=== PATIENT | male | born 1970 | race Caucasian/White ===

== ENCOUNTER → 2017-07-17 | Outpatient (CLI) | payer BC ==
[2017-06-20 11:00] VITALS: BP 140/79
--- NOTE | 2017-07-14 18:18 | HP ---
ADMIT DATE: Caden Burks dictating for Dr. Jesus Byrd. Preoperative history and physical for surgery scheduled on 07/21/2017 HISTORY OF PRESENT ILLNESS: The patient is a pleasant 47-year-old who was recently hospitalized for back and left leg pain. Following discharge, he says he has continued to have difficulties. He has low back pain in the left side intermittently. When he increased his activities, he notices pain which radiates into his left lateral leg. He says that his thigh is not particularly involved. His problems began in 1993 following a sneezing episode. He has had multiple episodes of back and leg pain, although this current episode is most severe and is not resolving. He rates his pain as an 8/10. He uses a TENS unit as well as tramadol. He takes Motrin. Epidural steroid injections in the past that he has received have sometimes helped and sometimes not. He has also been to chiropractic treatment and physical therapy in the past. PAST MEDICAL HISTORY: Hypertension. PAST SURGICAL HISTORY: Tonsillectomy 1984. FAMILY HISTORY: Cancer, diabetes, hypertension, spine problems. 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 . He uses electronic cigarettes. Drinks alcohol 6-8 times per week. ALLERGIES: No known drug allergies. CURRENT MEDICATIONS: Tramadol, Motrin, losartan, meloxicam, triamterene, multivitamin, omega-3, flaxseed oil, ginseng. REVIEW OF SYSTEMS: A 12-point review of systems was obtained and is noncontributory except for that mentioned above. NEUROSURGERY EXAMINATION: GENERAL APPEARANCE: Alert, pleasant, in no acute distress. HEENT: Head normocephalic and atraumatic. SKIN: Warm and dry. MUSCULOSKELETAL: Lumbar paraspinal muscle bulk is normal, restricted range of motion of lumbar spine, [id number]-[id number] tenderness of the lumbar spine with palpation, normal range of motion of the lower extremities bilaterally. EXTREMITIES: No clubbing, cyanosis, or edema. NEUROLOGIC: Alert and oriented x 3, strength 5/5 in bilateral lower extremities, sensation intact to light touch in bilateral lower extremities except for decreased sensation in the left lateral ____, reflexes were present and symmetric in the bilateral lower extremities except trace left ankle jerk, positive SLR on the left, negative SLR on the right, antalgic gait. IMAGING: Reviewed. I reviewed a lumbar MRI scan. There is moderately large focal disk herniation on the left side at L5-S1, which severely narrows the left lateral recess and compresses the left S1 nerve root. This is associated with moderate left greater than right spinal canal stenosis. ASSESSMENT: 1. Intervertebral disk disorders with radiculopathy, lumbosacral region. 2. Spinal stenosis, lumbosacral region. PLAN: The patient has had a problem for years with intermittent episodes of back and left leg pain, but most recently it was severe enough to require hospitalization. On imaging studies, there was a focal disk herniation on the left at L5-S1 with nerve root compression. My recommendation is that he consider undergoing microsurgery at this level. I spoke with him about the surgery and the risks as well as the expected postoperative course. He understands. He would like to go ahead. We will make the arrangements. JESUS BYRD MD DR: MYCHAL/kimberly JOB#: [id number] / [id number]
[~2017-07-17] MED LIST: DOCU-109 PO; IBUP-1060 PO; LOSA25TA PO; METH-38 PO; METH4TAB2 PO; OXYC-323 PO; OXYC1TAB7 PO; OXYC1TAB9 PO; PANT20TA2 PO; TRAM50TA PO; TRIA1CAP3 PO
--- NOTE | 2017-07-17 15:42 | EKG ---
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
[2017-07-17 15:58] LABS: BASO # 0.1 x10^3/uL (0.0-0.2); BASO % 1 % (0-3); EOS % 4 % (0-3); HEMATOCRIT 42.9 % (39.0-53.0); HEMOGLOBIN 14.8 g/dL (13.0-17.5); LYMPH # 2.7 x10^3/uL (1.0-4.8); LYMPH % 28 % (24-48); MEAN CORPUSCULAR HEMOGLOBIN 32 pg (25-35); MEAN CORPUSCULAR HGB CONC 35 g/dL (31-37); MEAN CORPUSCULAR VOLUME 93 fL (79-100); MONO % 6 % (0-9); NEUT % 61 % (31-73); PLATELET COUNT 228 x10^3/uL (140-400); RED BLOOD COUNT 4.64 x10^6/uL (4.30-5.70); RED CELL DISTRIBUTION WIDTH 13.7 % (11.5-14.5); WHITE BLOOD COUNT 9.6 x10^3/uL (4.0-11.0)
[2017-07-17 16:19] LABS: ALBUMIN/GLOBULIN RATIO 1.1 (1.0-1.7); CALCIUM 8.7 mg/dL (8.5-10.1); CREATININE 0.9 mg/dL (0.7-1.3); GFR 89.7; POTASSIUM 3.6 mmol/L (3.5-5.1); TOTAL BILIRUBIN 0.6 mg/dL (0.2-1.0); TOTAL PROTEIN 7.7 g/dL (6.4-8.2)
== END | disposition home or self-care (01) ==
LOC: SURGPAT 15:22
PROVIDERS: ATTEND Neurological Surgery
DX: Z01.818 Encounter for other preprocedural examination (principal); I10 Essential (primary) hypertension; M48.07 Spinal stenosis, lumbosacral region; M54.17 Radiculopathy, lumbosacral region
CPT/HCPCS: 36415; 80053; 85025; 87641; 93005

== ENCOUNTER → 2017-07-21 | Day surgery (SDC) | payer BC ==
[~2017-07-21] VITALS: Ht 175.3 cm; Wt 83.9 kg
[~2017-07-21] MED LIST changes: +BACITRACIN 50,000 UNIT in IV NORMAL SALINE 1000ML BAG 1,000 ML IRR ONE; +BUPIVACAINE MPF 0.5% 30 ML VIAL. ONE; +BUPIVACAINE-EPI 0.25%-1:200000 MPF 30 ML VIAL. ONE; +DESFLURANE > 120 MINUTES IH ONE; +DEXAMETHASONE SOD PHOS 20 MG/5 ML VIAL. ONE; +GELATIN SPONGE SIZE 100. ONE; +GLYCOPYRROLATE 1 MG/5 ML VIAL. ONE; +HYDROmorphone 2 MG/ML VIAL IV PRN; +IV RINGERS,LACTATED 1000ML 1,000 ML IV SCH; +KETOROLAC 60 MG/2 ML INJ FOR OR. ONE; +LIDOCAINE 1% PF 2 ML VIAL. ID PRN; +LIDOCAINE 2% PF Vial for OR 5 ML VIAL. ONE; +MORPHINE SULFATE 2 MG/ML DISP.SYRIN. IV PRN; +MORPHINE SULFATE 4 MG/ML DISP.SYRIN. IV PRN; +NEOSTIGMINE METHYLSULFATE 5 MG/5 ML SYRINGE. ONE; +ONDANSETRON PF 4 MG/2 ML VIAL. IV PRN; +ONDANSETRON PF 4 MG/2 ML VIAL. ONE; +PHENYLEPHRINE in 0.9% NACL PF 1 MG/10 ML DISP.SYRIN. IV ONE; +PROCHLORPERAZINE 10 MG/2 ML VIAL. IV PRN; +PROPOFOL 20 ML IV ONE; +PROPOFOL 50 ML IV ONE; +REMIFENTANIL 2 MG VIAL. IV ONE; +SUCCINYLCHOLINE 200 MG/10 ML VIAL. ONE; +THROMBIN TOPICAL 20,000 UNIT SPRAY.SYRN KIT TP ONE; +ePHEDrine PF IN SALINE 50 MG/5 ML DISP.SYRIN IV ONE; +fentaNYL PF VIAL 100 MCG/2 ML VIAL IV PRN; +fentaNYL PF VIAL 100 MCG/2 ML VIAL ONE; +oxyCODONE/APAP 5/325 1 TAB TABLET PO PRN
--- NOTE | 2017-07-21 11:12 | DISCH ---
DISCHARGE INSTRUCTIONS Condition on Discharge Condition on Discharge: Stable Activity After Discharge Activity Instructions for Disc: Resume previous activity, Activity as tolerated Other activity instructions: no driving for a week Bathing Instructions: Shower-keep dressing dry Lifting Instructions after Dis: No heavy lifting, No pulling or pushing, Do not lift >10 pounds Diet after Discharge Additional Diet Restrictions: resume home diet Wound Incision Care Wound/Incision Care: Ice to area for comfort Other wound/incision instructi: may remove dressing in 48 hrs if dry then may shower- no soaking Contacting the after DC Call your doctor for: Concerns you may have Follow-Up Follow up with: Dr. Byrd's nurse in 2 weeks [phone] JIM BYRD MD Jul 21, 2017 11:12
[2017-07-21] MEDS: fentaNYL PF VIAL 100 MCG/2 ML VIAL IV PRN ×2 (11:22→11:29)
[2017-07-21 12:15] VITALS: BP 128/78
--- NOTE | 2017-07-21 12:19 | OP ---
DATE OF SURGERY: 07/21/2017 PREOPERATIVE DIAGNOSES: Herniated lumbar disc, L5-S1 with left lumbar radiculopathy. POSTOPERATIVE DIAGNOSES: Herniated lumbar disc, L5-S1 with left lumbar radiculopathy. OPERATION PERFORMED: Hemilaminotomy and microdiscectomy, L5-S1, left. The operation was done with EMG monitoring, fluoroscopy, microscopic dissection. SURGEON: Jesus Byrd M.D. WASTE ELIMINATION: NEETU Triplett, assisted with the surgery; she assisted with the microdiskectomy as well as the closure. OPERATIVE INDICATIONS: The patient is a pleasant 47-year-old man who developed intractable back and leg pain, which did require hospitalization. He was treated conservatively with steroid injections and did not improve significantly and continue to have severe radicular problems with his left leg. Surgery had been recommended. He elected to go forward. He understood the surgery and the risks. He understood the technique. DESCRIPTION OF PROCEDURE: Following general endotracheal anesthesia, the patient was positioned prone on the Girish table with lumbar region prepped and draped in standard fashion. TREVA hose and AV impulse boots were applied for DVT prophylaxis. A microscope was draped. Fluoroscopy was draped and brought into field. Monitoring was established. Ancef 2 grams was given less than 1 hour prior to initiation of the surgery. Using fluoroscopic guidance, an incision was made over the L5-S1 interspace. I dissected down through the skin and subcutaneous tissue and reflected the paraspinal muscles and placed a [place] micro disc retractor, brought in the microscope. The remainder of surgery was done with a microscope using microscopic technique. I brought in the high speed air drill and burred down a generous hemilaminotomy and then trimmed away thickened ligamentum flavum and I did perform a partial foraminotomy. The ligamentum flavum was very thickened over the level of the disc and slightly inferior to this and compressing the nerve root markedly down on to a large subligamentous disc herniation. After removing ligament and performing a partial foraminotomy, I gently retracted the root medially and used 11 blade to enter the very thinned out posterior ligament. I then removed several large disc fragments teasing from medial to lateral and the root became better decompressed. I was unable to retract slightly farther and then, I incised the annulus and performed a discectomy with pituitary rongeurs and as I worked in, the region became well decompressed. There was bulging disc above the level of the disc space, which was removed; however, more medially, there was a calcified disc herniation, which I did not feel was contributing to nerve root compression. I did not drill down and remove and that. There was some danger with that type of maneuver and I was unwilling to retract the root to that extent. I did explore carefully. The root was very free, was easily able to be retracted medially. The large disc herniation had been removed and there was the only residual calcified disc bulging medially which was left. At this point, then I irrigated copiously antibiotic solution. I closed the wound then with absorbable sutures after obtaining perfect hemostasis. The skin was closed with 4-0 subcuticular stitch. I felt the surgery went very well and the patient was awakened uneventfully. I was quite pleased with the surgery. JESUS BYRD MD DR: MYCHAL/kimberly JOB#: [id number] / [id number] YOHAN
--- NOTE | 2017-07-25 11:37 | HP ---
ADMIT DATE: 07/21/2017 Caden Burks dictating for Dr. Jesus Byrd. Preoperative history and physical for surgery scheduled on 07/21/2017 HISTORY OF PRESENT ILLNESS: The patient is a pleasant 47-year-old who was recently hospitalized for back and left leg pain. Following discharge, he says he has continued to have difficulties. He has low back pain in the left side intermittently. When he increased his activities, he notices pain which radiates into his left lateral leg. He says that his thigh is not particularly involved. His problems began in 1993 following a sneezing episode. He has had multiple episodes of back and leg pain, although this current episode is most severe and is not resolving. He rates his pain as an 8/10. He uses a TENS unit as well as tramadol. He takes Motrin. Epidural steroid injections in the past that he has received have sometimes helped and sometimes not. He has also been to chiropractic treatment and physical therapy in the past. PAST MEDICAL HISTORY: Hypertension. PAST SURGICAL HISTORY: Tonsillectomy 1984. FAMILY HISTORY: Cancer, diabetes, hypertension, spine problems. 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 . He uses electronic cigarettes. Drinks alcohol 6-8 times per week. ALLERGIES: No known drug allergies. CURRENT MEDICATIONS: Tramadol, Motrin, losartan, meloxicam, triamterene, multivitamin, omega-3, flaxseed oil, ginseng. REVIEW OF SYSTEMS: A 12-point review of systems was obtained and is noncontributory except for that mentioned above. NEUROSURGERY EXAMINATION: GENERAL APPEARANCE: Alert, pleasant, in no acute distress. HEENT: Head normocephalic and atraumatic. SKIN: Warm and dry. MUSCULOSKELETAL: Lumbar paraspinal muscle bulk is normal, restricted range of motion of lumbar spine, rcgr-um-[id number] tenderness of the lumbar spine with palpation, normal range of motion of the lower extremities bilaterally. EXTREMITIES: No clubbing, cyanosis, or edema. NEUROLOGIC: Alert and oriented x 3, strength 5/5 in bilateral lower extremities, sensation intact to light touch in bilateral lower extremities except for decreased sensation in the left lateral ____, reflexes were present and symmetric in the bilateral lower extremities except trace left ankle jerk, positive SLR on the left, negative SLR on the right, antalgic gait. IMAGING: Reviewed. I reviewed a lumbar MRI scan. There is moderately large focal disk herniation on the left side at L5-S1, which severely narrows the left lateral recess and compresses the left S1 nerve root. This is associated with moderate left greater than right spinal canal stenosis. ASSESSMENT: 1. Intervertebral disk disorders with radiculopathy, lumbosacral region. 2. Spinal stenosis, lumbosacral region. PLAN: The patient has had a problem for years with intermittent episodes of back and left leg pain, but most recently it was severe enough to require hospitalization. On imaging studies, there was a focal disk herniation on the left at L5-S1 with nerve root compression. My recommendation is that he consider undergoing microsurgery at this level. I spoke with him about the surgery and the risks as well as the expected postoperative course. He understands. He would like to go ahead. We will make the arrangements. JESUS BYRD MD DR: MYCHAL/kimberly JOB#: [id number] / [id number]
--- NOTE | 2017-07-25 13:20 | PATHOLOGY ---
PATHOLOGY REPORT * * * * * * * * FINAL DIAGNOSIS: Segments of fibrocartilaginous, adipose, and skeletal muscle tissue and bone, lumbar disc and decompression: - Degenerative changes of fibrocartilaginous tissue. (JPM:pit; 07/25/2017) COMMENT: There is no evidence of an acute inflammatory process or malignancy. (JPM:pit; 07/25/2017) REPORT ELECTRONICALLY SIGNED BY: Darrell Mcneal M.D. DATE/TIME: 07/25/2017 13:20 * * * * * * * * GROSS PATHOLOGY: The specimen is received in formalin, labeled "Joselin England and lumbar disc and decompression" and consists of a 2.5 x 1.7 x 1.6 cm aggregate of mesa-crenshaw and hemorrhagic fibrocartilaginous tissue. Exercise Physiology Professor sections are submitted as A1. (ANUSHKA; 07/24/2017) INITIAL CPT CODE(S): A; 70355 Professional services performed [place] [facility] [place] [address] Technical services performed by [facility] at [address] [place] [address]. SPECIMEN(S) RECEIVED: A.Lumbar disc and decompression CLINICAL HISTORY: Lumbar herniated disc PATIENT: JOSELIN ENGLAND /AGE: 5 1970 (Age: 47) PATIENT #: [id number] ALT CASE #: SPECIMEN COLLECTION DATE: 07/21/2017 SPECIMEN RECEIVED DATE: 07/21/2017 [facility] - [address] [place] [address] - PHONE: [phone] * * * END OF REPORT * * *
== END | disposition home or self-care (01) ==
LOC: SURG 06:53
PROVIDERS: ATTEND Neurological Surgery
DX: M51.16 Intervertebral disc disorders with radiculopathy, lumbar region (principal); I10 Essential (primary) hypertension; F17.200 Nicotine dependence, unspecified, uncomplicated; Z86.69 Personal history of other diseases of the nervous system and sense organs; Z87.39 Personal history of other diseases of the musculoskeletal system and connective tissue; Z72.89 Other problems related to lifestyle; Z72.0 Tobacco use; Z88.8 Allergy status to other drugs, medicaments and biological substances
CPT/HCPCS: 63030; 76000; 97161; J0330; J0690; J1100; J1885; J2270; J2370; J2405; J2704; J2710; J3010; J3490; J7030; J7120; J0780; J2001

== ENCOUNTER → 2018-11-29 | Outpatient (CLI) | payer BC ==
[~2018-11-29] MED LIST changes: -BACITRACIN 50,000 UNIT in IV NORMAL SALINE 1000ML BAG 1,000 ML IRR ONE; -BUPIVACAINE MPF 0.5% 30 ML VIAL. ONE; -BUPIVACAINE-EPI 0.25%-1:200000 MPF 30 ML VIAL. ONE; -DESFLURANE > 120 MINUTES IH ONE; -DEXAMETHASONE SOD PHOS 20 MG/5 ML VIAL. ONE; +GABA600T7 PO; -GELATIN SPONGE SIZE 100. ONE; -GLYCOPYRROLATE 1 MG/5 ML VIAL. ONE; +HYDR-3164 PO; -HYDROmorphone 2 MG/ML VIAL IV PRN; +IOHEXOL 180 MG/ML 10 ML VIAL. IT ONE; -IV RINGERS,LACTATED 1000ML 1,000 ML IV SCH; -KETOROLAC 60 MG/2 ML INJ FOR OR. ONE; -LIDOCAINE 1% PF 2 ML VIAL. ID PRN; -LIDOCAINE 2% PF Vial for OR 5 ML VIAL. ONE; +LIDOCAINE WITH 8.4% SOD BICARB 3 ML DISP.SYRIN. INJ ONE; +LOSA1TAB22 PO; -MORPHINE SULFATE 2 MG/ML DISP.SYRIN. IV PRN; -MORPHINE SULFATE 4 MG/ML DISP.SYRIN. IV PRN; +MULT1TAB52 PO; -NEOSTIGMINE METHYLSULFATE 5 MG/5 ML SYRINGE. ONE; -ONDANSETRON PF 4 MG/2 ML VIAL. IV PRN; -ONDANSETRON PF 4 MG/2 ML VIAL. ONE; -OXYC-323 PO; +OXYC-411 PO; +OXYC1TAB15 PO; -OXYC1TAB9 PO; -PHENYLEPHRINE in 0.9% NACL PF 1 MG/10 ML DISP.SYRIN. IV ONE; -PROCHLORPERAZINE 10 MG/2 ML VIAL. IV PRN; -PROPOFOL 20 ML IV ONE; -PROPOFOL 50 ML IV ONE; -REMIFENTANIL 2 MG VIAL. IV ONE; -SUCCINYLCHOLINE 200 MG/10 ML VIAL. ONE; -THROMBIN TOPICAL 20,000 UNIT SPRAY.SYRN KIT TP ONE; -ePHEDrine PF IN SALINE 50 MG/5 ML DISP.SYRIN IV ONE; -fentaNYL PF VIAL 100 MCG/2 ML VIAL IV PRN; -fentaNYL PF VIAL 100 MCG/2 ML VIAL ONE; -oxyCODONE/APAP 5/325 1 TAB TABLET PO PRN
[2018-11-29 10:28] VITALS: BP 154/75
--- NOTE | 2018-11-29 10:45 | NUR ---
Pt discharged home accompanied by his mother. VSS. Pt given CD, and images okayed for discharge per Dr. Regan. Discharge instructions given and reviewed with pt. Pt walked with mother to main entrance.
--- NOTE | 2018-11-29 11:09 | RAD ---
Lumbar myelogram, 11/29/2018: History: Left foot drop, radiculopathy Under local anesthesia, aseptic conditions and fluoroscopic guidance a lumbar puncture was performed at the upper L4 level utilizing a 25-gauge spinal needle. Good clear CSF flow was obtained following which 14 cc of Omnipaque 180 was injected in the thecal sac. The spinal needle was removed and hemostasis obtained. Appropriate digital imaging was then performed. 2.6 minutes of fluoroscopy time was utilized. 13 fluoroscopic spot images were recorded. The patient tolerated the procedure well and was sent to CT in good condition. The following findings were delineated on the myelogram: 1. There is a moderate anterior extradural defect as well as mild bilateral and posterior extradural defects at L4-5. This produces mild to moderate central spinal stenosis. The upright lateral flexion and extension view show no significant instability. 2. There is a moderate anterior extradural defect at L3-4. 3. There is decreased filling of the L5 nerve root sleeves bilaterally. CT lumbar spine-post myelogram, 11/29/2018: Multidetector CT imaging were was performed with multiplanar reconstructions produced. The following findings are delineated: 1. No significant posterior disc bulge or protrusion is seen at L1-2. The central spinal canal and neural foramina are well maintained. 2. At L2-3 there is slight posterior annular bulging. The central spinal canal and neural foramina are well maintained. 3. At L3-4 there is moderate disc space narrowing with a vacuum disc phenomena. There is moderate posterior marginal spurring and broad-based posterior disc bulging. There are mild degenerative changes involving the facet joints. The combination of findings narrows the thecal sac down to an AP diameter of 8 mm at the midline. There is mild inferior foraminal narrowing bilaterally. 4. At L4-5 there is moderate disc space narrowing with a vacuum disc phenomena and moderate marginal spurring. Moderate broad-based posterior disc bulging in conjunction with the posterior spurring is causing moderate narrowing of the thecal sac which measures 7 mm in AP diameter at the midline. There is mild inferior foraminal narrowing bilaterally. 5. At L5-S1 there is also disc space narrowing with a vacuum disc phenomena and moderate to severe marginal spurring. There is also considerable spurring arising from the facet joints with vacuum phenomena at the facet joints. The spurring is causing considerable bilateral foraminal encroachment. The thecal sac centrally is not significantly stenotic. IMPRESSION: 1. Moderate multilevel degenerative disc disease as described above. 2. Moderate associated central spinal stenosis at L4-5 and mild central spinal stenosis at L3-4. 3. Severe bilateral foraminal encroachment at L5-S1 due to spurring. PQRS Compliance Statement: One or more of the following individualized dose reduction techniques were utilized for this examination: 1. Automated exposure control 2. Adjustment of the mA and/or kV according to patient size 3. Use of iterative reconstruction technique
== END | disposition home or self-care (01) ==
LOC: RAD 08:43
PROVIDERS: ATTEND Neurological Surgery
DX: M51.16 Intervertebral disc disorders with radiculopathy, lumbar region (principal); M48.061 Spinal stenosis, lumbar region without neurogenic claudication; M46.07 Spinal enthesopathy, lumbosacral region
CPT/HCPCS: 72132; 72265

== ENCOUNTER → 2018-12-17 | Outpatient (CLI) | payer BC ==
[2018-11-29 10:28] VITALS: BP 154/75
[~2018-12-17] MED LIST changes: -IOHEXOL 180 MG/ML 10 ML VIAL. IT ONE; -LIDOCAINE WITH 8.4% SOD BICARB 3 ML DISP.SYRIN. INJ ONE
[2018-12-17 11:12] LABS: BASO # 0.1 x10^3/uL (0.0-0.2); BASO % 1 % (0-3); EOS # 0.2 x10^3/uL (0.0-0.7); EOS % 3 % (0-3); HEMATOCRIT 44.8 % (39.0-53.0); HEMOGLOBIN 15.2 g/dL (13.0-17.5); LYMPH # 2.1 x10^3/uL (1.0-4.8); LYMPH % 30 % (24-48); MEAN CORPUSCULAR HEMOGLOBIN 32 pg (25-35); MEAN CORPUSCULAR HGB CONC 34 g/dL (31-37); MEAN CORPUSCULAR VOLUME 93 fL (79-100); MONO # 0.5 x10^3/uL (0.0-1.1); MONO % 7 % (0-9); NEUT # 4.3 x10^3uL (1.8-7.7); NEUT % 59 % (31-73); PLATELET COUNT 186 x10^3/uL (140-400); RED BLOOD COUNT 4.82 x10^6/uL (4.30-5.70); RED CELL DISTRIBUTION WIDTH 13.9 % (11.5-14.5); WHITE BLOOD COUNT 7.2 x10^3/uL (4.0-11.0)
[2018-12-17 11:38] LABS: ALBUMIN 3.9 g/dL (3.4-5.0); CALCIUM 9.1 mg/dL (8.5-10.1); CREATININE 0.9 mg/dL (0.7-1.3); GFR 89.3; POTASSIUM 3.5 mmol/L (3.5-5.1); TOTAL BILIRUBIN 0.6 mg/dL (0.2-1.0); TOTAL PROTEIN 7.8 g/dL (6.4-8.2)
--- NOTE | 2018-12-17 11:47 | EKG ---
[facility] [address] [place] [address] Test Date: 2018-12-17 Test Time: 10:40:02 Pat Name: JOSELIN ENGLAND Department: Room: Gender: M Beer Maker: : 1970 Requested By: JIM BYRD Order Number: [id number] Reading MD: Roberto Gomez MD Measurements Intervals [place] Rate: 73 P: 6 SC: 176 QRS: -26 QRSD: 94 T: 31 QT: 346 QTc: 384 Interpretive Statements SINUS RHYTHM Electronically Signed On 12-18-2018 7:03:02 LUGGAGE MAKER by Roberto Gomez MD
== END | disposition home or self-care (01) ==
LOC: SURGPAT 10:08
PROVIDERS: ATTEND Neurological Surgery
DX: M54.16 Radiculopathy, lumbar region (principal); M21.379 Foot drop, unspecified foot
CPT/HCPCS: 36415; 80053; 85025; 87641; 93005

== ENCOUNTER 2018-12-24 07:21 | Day surgery (SDC) | payer BC ==
--- NOTE | 2018-12-21 17:35 | PREOP HP ---
DATE OF SERVICE: 12/24/2018 DATE OF SURGERY: 12/24/2018 HISTORY OF PRESENT ILLNESS: The patient is a pleasant 48-year-old who is having difficulty with right foot weakness and right foot pain along with mild back pain. He does note some discomfort, which can radiate down his lateral thigh and leg. The problem started on 10/18/2018 when he felt a pop in his back. He rates his pain as 7/10. The pain is constant, especially with lying on his back. He has been taking gabapentin and muscle relaxers and tramadol, which has not given significant long-term relief. He did undergo surgery in 07/2017, he did well from that. PAST MEDICAL HISTORY: Hypertension. PAST SURGICAL HISTORY: Tonsillectomy 1984, lumbar microdiskectomy L5-S1, left 07/2017. FAMILY HISTORY: Cancer, diabetes, hypertension and spine problems. 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 . Uses e-cigarettes. Drinks alcohol 6-8 times per week. ALLERGIES: No known drug allergies. CURRENT MEDICATIONS: Tramadol, Motrin, losartan, meloxicam, multivitamin, gabapentin, tizanidine and fish oil. REVIEW OF SYSTEMS: A 12-point review of systems was obtained and is noncontributory except for that mentioned above. PHYSICAL EXAMINATION: NEUROSURGERY EXAMINATION: GENERAL APPEARANCE: Alert, pleasant, no acute distress. HEAD: Normocephalic, atraumatic. SKIN: Warm and dry. Well-healed lumbar incision. MUSCULOSKELETAL: Lumbar paraspinal muscle bulk is normal, restricted range of motion of the lumbar spine, [id number]-ua-lvrvhmja tenderness over the lower lumbar spine with palpation, normal range of motion of the lower extremities bilaterally. EXTREMITIES: No clubbing, cyanosis or edema. NEUROLOGIC: Alert and oriented x 3, normal recent and remote memory. Strength 5/5 in bilateral lower extremities except 4/5 right foot dorsiflexion, sensory was intact to light touch in bilateral lower extremities. Reflexes are present and symmetric in lower extremities bilaterally, negative straight leg raising bilaterally, abnormal gait with lateral rotation of his right foot compared to his left. IMAGING: I reviewed a lumbar MRI scan and lumbar myelogram. On that study, there were moderately severe stenosis at L4-5 and foraminal stenosis at L5- S1 on the right. ASSESSMENT/PLAN: I spoke with him about lumbar decompression at L4-5 and L5- S1. We spoke about the technique, risks and expected post op course. He understands and would like to proceed. JIM BYRD MD DR: MYCHAL/kimberly JOB#: [id number] / [id number] YOHAN
[~2018-12-24] VITALS: Ht 185.4 cm; Wt 121.1 kg
[~2018-12-24 07:21] MED LIST changes: +BACITRACIN 50,000 UNIT in IV NORMAL SALINE 1000ML BAG 1,000 ML IRR ONE; +BUPIVAC MPF-EPI 0.5%-1:200000 30 ML VIAL. ONE; +GELATIN SPONGE SIZE 100. ONE; -HYDR-3164 PO; +IV RINGERS,LACTATED 1000ML 1,000 ML IV SCH; +KETOROLAC 60 MG/2 ML INJ FOR OR. ONE; +LIDOCAINE 1% PF 2 ML VIAL. ID PRN; +MORPHINE SULFATE 2 MG/ML VIAL. IV PRN; +ONDANSETRON PF 4 MG/2 ML VIAL. IV PRN; +PROCHLORPERAZINE 10 MG/2 ML VIAL. IV PRN; +THROMBIN TOPICAL 20,000 UNIT SPRAY.SYRN KIT TP ONE; +fentaNYL PF VIAL 100 MCG/2 ML VIAL IV PRN
[2018-12-24] MEDS ORDERED: MIDAZOLAM HCL/PF 2 MG/2 ML VIAL. ONE (08:06)
[2018-12-24] MEDS ORDERED: REMIFENTANIL 2 MG VIAL. IV ONE (08:07)
[2018-12-24] MEDS ORDERED: GLYCOPYRROLATE 1 MG/5 ML VIAL. ONE (08:07)
[2018-12-24] MEDS ORDERED: ROCURONIUM 50 MG/5 ML VIAL. ONE (08:07)
[2018-12-24] MEDS ORDERED: PHENYLEPHRINE 10 MG/ML VIAL. ONE (08:08)
[2018-12-24] MEDS ORDERED: ONDANSETRON PF 4 MG/2 ML VIAL. ONE (08:08)
[2018-12-24] MEDS ORDERED: PROPOFOL 50 ML IV ONE ×2 (08:08→10:33)
[2018-12-24] MEDS ORDERED: PROPOFOL 20 ML IV ONE (08:08)
[2018-12-24] MEDS ORDERED: DEXAMETHASONE SOD PHOS 20 MG/5 ML VIAL. ONE (08:08)
[2018-12-24] MEDS ORDERED: LIDOCAINE 2% PF 5 ML VIAL. ONE (08:08)
[2018-12-24] MEDS ORDERED: ceFAZolin SODIUM 1 GM VIAL ONE (09:36)
[2018-12-24] MEDS ORDERED: KETOROLAC 30 MG/ML INJ FOR OR. INJ ONE (10:32)
--- NOTE | 2018-12-24 10:50 | DISCH ---
DISCHARGE INSTRUCTIONS Condition on Discharge Condition on Discharge: Stable Activity After Discharge Activity Instructions for Disc: Resume previous activity, Activity as tolerated Bathing Instructions: Shower-keep dressing dry Lifting Instructions after Dis: No heavy lifting, No pulling or pushing, Do not lift >10 pounds Driving Instructions after Dis: Do not drive today Weight Bearing Status after Di: As tolerated Diet after Discharge Diet after Discharge: Regular Additional Diet Restrictions: resume home diet Wound Incision Care Wound/Incision Care: Ice to area for comfort Other wound/incision instructi: may remove dressing in 48 hrs if dry then may shower, no soaking Contacting the DREmilia after DC Call your doctor for: Concerns you may have Follow-Up Follow up with: Dr. Byrd's nurse in 2 weeks [phone] Treatment/Equipment after DC Adaptive Equipment Issued: None JIM BYRD MD Dec 24, 2018 10:50
[2018-12-24] MEDS ORDERED: HYDR-3164 PO (10:55)
[2018-12-24] MEDS ORDERED: DOCU-109 PO (10:55)
[2018-12-24] MEDS: fentaNYL PF VIAL 100 MCG/2 ML VIAL IV PRN ×2 (11:24→11:32)
[2018-12-24] MEDS: HYDROmorphone 2 MG/ML VIAL IV PRN ×2 (11:42→11:55)
[2018-12-24] MEDS ORDERED: HYDROcodone/APAP 5/325MG 1 TAB TABLET PO ONE (12:00)
[2018-12-24 13:31] VITALS: BP 145/83
--- NOTE | 2018-12-24 13:33 | OP ---
DATE OF SURGERY: 12/24/2018 PREOPERATIVE DIAGNOSES: 1. Lateral recess stenosis and foraminal narrowing, right L5-S1. 3. Lumbar stenosis L4-L5. OPERATION PERFORMED: 1. Hemilaminotomy and transfacet exposure with decompression of the right L5 and S1 nerve root, L5-S1, right. 2. Hemilaminotomy with decompression of dura and nerve root, L4-L5. 3. The operation was done with EMG monitoring, SSEP monitoring, fluoroscopy, microscopic dissection. SURGEON: Jesus Byrd M.D. STEEL DIVISION SUPERVISOR: NEETU Triplett assisted with the surgery. She assisted with the exposure, microdecompression at both levels as well as closure. OPERATIVE INDICATIONS: The patient is a pleasant 48-year-old who developed intractable back and right leg pain along with weakness in his right foot. On imaging studies, there was a large spur at the superior aspect of the facet at L5-S1 on the right, which was compressing the right L5 root as it rounded the pedicle and moved laterally into the neural foramen. In addition, there was lateral recess narrowing at L5-S1. At L4-L5, there was an element of lumbar spinal stenosis. I recommended decompression at both of these levels. I spoke with the patient about the surgery, the risks, technique and expected postoperative course and he wished to go ahead. DESCRIPTION OF PROCEDURE: Following general endotracheal anesthesia, the patient was positioned prone on the Girish table. Lumbar region prepped and draped in standard fashion. TREVA hose and AV impulse boots were applied for DVT prophylaxis. The microscope was draped. Fluoroscopy was draped and brought into the field. Monitoring was established. Ancef 2 grams was given less than 1 hour prior to initiation of surgery. Using fluoroscopic guidance, incision was made from L4 through S1. I dissected down skin and subcutaneous tissue, reflected the paraspinal muscles to the right and placed a [place] microdisk retractor. I brought in the microscope and the remainder of surgery done with microscope using microscopic technique. Using high speed air drill, I burred down a generous hemilaminotomy at L5-S1 and then worked laterally and peeled away thickened ligamentum flavum and I exposed the dura and the exiting S1 root followed by the L5 root, which was rounding the pedicle moving laterally. There was a large spur of the facet, which was markedly compressing and depressing the L5 root at L5-S1 and I removed this material and I followed further laterally to ensure that the foramen was widely patent and the nerve was fully decompressed. I then explored carefully, there was some disc bulging, but the disc was firm. I irrigated copiously, did use small amounts of bone wax. I then moved to the L4-L5 and performed a generous hemilaminotomy and decompress the dura to the midline as well as the L5 root with a partial foraminotomy. At this level, there was a minimal amount of disc bulging. The disc was firm, no discectomy was warranted. I fully decompressed this region and then removed the retractor, irrigated copiously, obtained hemostasis in the muscle. I assured myself that the areas were very well decompressed. The monitoring was excellent. I then closed the wound in layers with absorbable suture. The skin was closed with a 4 -0 subcuticular stitch. The operation went very well and the patient awakened uneventfully. I was quite pleased with the surgery. JESUS BYRD MD DR: MYCHAL/kimberly JOB#: [id number] / [id number] YOHAN
--- NOTE | 2018-12-25 16:08 | PATHOLOGY ---
[facility] Accession Number: [id number] . 01 Material submitted: . LUMBAR DECOMPRESSION . 01 Clinical history: . Lumbar radiculopathy, foot drop, low back pain . 02 Diagnosis: Segments of fibrocartilaginous, fibroadipose, and skeletal muscle tissue and bone, lumbar decompression: - Degenerative changes of fibrocartilaginous tissue. (JPM:sales officer; 12/25/2018) MBR/12/25/2018 . 02 Comment: There is no evidence of an acute inflammatory process or malignancy. (JPM:sales officer; 12/25/2018) . 02 Electronically signed: . Darrell Mcneal MD, Pathologist NPI- [id number] . 01 Gross description: . Received in formalin labeled "Julian Hernandez, lumbar decompression," are several pieces of glistening, fibrous tissue measuring 4.3 x 2.7 x 1.9 cm in aggregate dimensions, containing small fragments of possible bone. The tissue is submitted representatively in cassette A1, following decalcification. (TSD; 12/24/2018) TOB/TOB . 02 Pathologist provided ICD-10: M51.36 . 02 CPT . 729940, [id number] Specimen Comment: A courtesy copy of this report has been sent to Specimen Comment: [phone], . Specimen Comment: Report sent to / DR LATHAM Performed at: 01 [facility] [address], [place] [id number] MD Omar Iverson MD Phone: [phone] Performed at: [address] [facility] [id number] MD Darrell Mcneal MD Phone: [phone]
== END 2018-12-24 13:51 | disposition home or self-care (01) ==
LOC: SURG 07:21
PROVIDERS: ATTEND Neurological Surgery
DX: M48.061 Spinal stenosis, lumbar region without neurogenic claudication (principal); I10 Essential (primary) hypertension; Z98.890 Other specified postprocedural states; Z83.3 Family history of diabetes mellitus; Z88.8 Allergy status to other drugs, medicaments and biological substances; Z79.899 Other long term (current) drug therapy; Z72.89 Other problems related to lifestyle
CPT/HCPCS: 63047; 63048; 76000; 88304; 88311; 97161; A7015; J0690; J0696; J1100; J1170; J1885; J2001; J2250; J2405; J2704; J3010; J3490; J7030